=== PATIENT | female | born 1980 | race Two or more races ===

== ENCOUNTER 2018-05-17 08:26 | Emergency (ER) | payer MEDICAID ==
[~2018-05-17] VITALS: Ht 160 cm; Wt 100.0 kg
[~2018-05-17 08:26] MED LIST: DIPH25CA83 PO; FLO0.4C PO; HYDR-4383 PO; IBUP-1573 PO; IBUP-1986 PO; NAPR-1154 PO; ONDA4TAB12 PO; ONDA8TAB9 PO; TRAM50TA2 PO
[2018-05-17 09:28] LABS: URINE HCG NEGATIVE (NEG)
[2018-05-17 09:30] LABS: CLARITY,URINE SLIGHTLY CLOUDY (Clear); COLOR,URINE YELLOW (Yellow); GLUCOSE, URINE NEGATIVE (Neg); KETONES,URINE NEGATIVE (Neg); LEUKOCYTE ESTERASE ,URINE NEGATIVE (Neg); NITRITES, URINE NEGATIVE (Neg); OCCULT BLOOD,URINE TRACE-INTACT (Neg); PH,URINE 5.5 (4.8-8.0); PROTEIN,URINE TRACE mg/dl (Neg); UROBILINOGEN,URINE 0.2 E.U/dL (0.2-1.0)
[2018-05-17] MEDS ORDERED: ondansetron 4mg rapidly disintigrating tab PO ONE (09:30)
[2018-05-17] MEDS ORDERED: ketorolac trometh inj. 60 MG/2 ML VIAL IM ONE (09:30)
[2018-05-17 09:36] LABS: UA COLLECTION TYPE VOIDED
[2018-05-17 09:39] LABS: SQUAMOUS EPITHELIAL CELL,UR MANY /LPF (FEW)
[2018-05-17 09:40] LABS: MUCUS STRANDS MODERATE /LPF (Neg)
[2018-05-17 09:42] LABS: AMORPHOUS URATES 1+; BACTERIA,URINE FEW /HPF (Neg); RBC,URINE 0-2 /HPF (0-2); WBC,URINE 0-4 /HPF (0-4)
[2018-05-17 09:57] VITALS: BP 126/78
[2018-05-17] MEDS ORDERED: IBUP-1984 PO (10:00)
[2018-05-17] MEDS ORDERED: HYDR-4353 PO (10:00)
[2018-05-17] MEDS ORDERED: FLO0.4C PO (10:00)
== END 2018-05-17 10:09 | disposition home or self-care (01) ==
LOC: ER 08:27
DX: R10.9 Unspecified abdominal pain (principal); R11.10 Vomiting, unspecified; J45.909 Unspecified asthma, uncomplicated; Z87.442 Personal history of urinary calculi; Z86.14 Personal history of Methicillin resistant Staphylococcus aureus infection; Z90.49 Acquired absence of other specified parts of digestive tract; Z98.890 Other specified postprocedural states; Z88.2 Allergy status to sulfonamides; Z88.1 Allergy status to other antibiotic agents; Z79.899 Other long term (current) drug therapy
CPT/HCPCS: 81001; 81025; 96372; 99283; J1885

== ENCOUNTER 2018-06-18 15:02 | Emergency (ER) | payer MEDICAID ==
[~2018-06-18] VITALS: Ht 162.6 cm; Wt 105.0 kg
[2018-06-18 15:03] VITALS: BP 170/94
[2018-06-18] MEDS ORDERED: ketorolac trometh. 30mg/ml inj. IV ONE (15:55)
[2018-06-18] MEDS ORDERED: ondansetron/PF 4mg/2ml inj IV ONE (15:55)
[2018-06-18] MEDS ORDERED: morphine 4 MG/ML inj SYRINge IV PRN (15:55)
[2018-06-18] MEDS ORDERED: normal saline 1000ML IV soln IVB ONE (15:55)
[2018-06-18 16:12] LABS: URINE HCG NEGATIVE (NEG)
[2018-06-18 16:13] LABS: CLARITY,URINE CLOUDY (Clear); COLOR,URINE YELLOW (Yellow); GLUCOSE, URINE NEGATIVE (Neg); KETONES,URINE NEGATIVE (Neg); LEUKOCYTE ESTERASE ,URINE NEGATIVE (Neg); NITRITES, URINE NEGATIVE (Neg); OCCULT BLOOD,URINE TRACE-LYSED (Neg); PH,URINE 5.5 (4.8-8.0); PROTEIN,URINE TRACE mg/dl (Neg); UROBILINOGEN,URINE 0.2 E.U/dL (0.2-1.0)
[2018-06-18 16:14] LABS: UA COLLECTION TYPE CLN CATCH MIDSTREAM
[2018-06-18 16:18] LABS: SQUAMOUS EPITHELIAL CELL,UR MANY /LPF (FEW)
[2018-06-18 16:19] LABS: BACTERIA,URINE 1+ /HPF (Neg); RBC,URINE 0-2 /HPF (0-2); WBC,URINE 0-4 /HPF (0-4)
[2018-06-18 16:41] LABS: BASOPHILS % (AUTO) 0.4 % (0-1); EOSINOPHILS # (AUTO) 0.2 X10'3 (0-0.9); EOSINOPHILS % (AUTO) 2.1 % (0-6); HEMATOCRIT 39.8 % (35.0-45.0); HEMOGLOBIN 13.5 g/dl (12.0-16.0); LYMPHOCYTES # (AUTO) 2.5 X10'3 (1.1-4.8); LYMPHOCYTES % (AUTO) 26.8 % (21-51); MEAN CORPUSCULAR HGB CONC 33.9 % (33.0-36.5); MEAN CORPUSCULAR VOLUME 91.4 FL (78-98); MEAN PLATELET VOLUME 7.3 FL (7.4-10.4); MONOCYTES # (AUTO) 0.7 X10'3 (0-0.9); MONOCYTES % (AUTO) 7.2 % (2-12); NEUTROPHILS % (AUTO) 63.5 % (42-75); PLATELET COUNT 376 X10'3 (140-440); RED BLOOD COUNT 4.35 X10'6 (4.20-5.60); RED CELL DISTRIBUTION WIDTH 14.9 % (11.5-14.5); WHITE BLOOD COUNT 9.4 X10'3 (4.5-11.0)
[2018-06-18 16:52] LABS: ALANINE AMINOTRANSFERASE 27 U/L (12-78); ALBUMIN 3.9 G/DL (3.4-5.0); ALBUMIN/GLOBULIN RATIO 1.1 (1.1-1.5); ALKALINE PHOSPHATASE 71 IU/L (46-116); ANION GAP 9 (8-16); ASPARTATE AMINO TRANSFERASE 24 U/L (10-37); BILIRUBIN,TOTAL 0.9 MG/DL (0.1-1.0); BLOOD UREA NITROGEN 11 MG/DL (7-18); BUN/CREATININE RATIO 16.4 (6.6-38.0); CALCIUM 9.1 MG/DL (8.5-10.1); CHLORIDE 104 MMOL/L (99-107); CREATININE 0.67 MG/DL (0.40-0.90); GLUCOSE 79 MG/DL (70-104); POTASSIUM 3.9 MMOL/L (3.5-5.1); SODIUM 139 MMOL/L (135-145); TOTAL CARBON DIOXIDE 26.3 MMOL/L (24-32); TOTAL PROTEIN 7.6 G/DL (6.4-8.2); eGFR > 90 ML/MIN
[2018-06-18] MEDS ORDERED: KETO10TA2 PO (17:34)
== END 2018-06-18 18:16 | disposition home or self-care (01) ==
LOC: ER 15:02
DX: N23 Unspecified renal colic (principal); J45.909 Unspecified asthma, uncomplicated; Z90.49 Acquired absence of other specified parts of digestive tract; Z88.1 Allergy status to other antibiotic agents; Z88.2 Allergy status to sulfonamides
CPT/HCPCS: 36415; 74176; 76775; 80053; 81001; 81025; 85025; 96374; 96375; 99284; J1885; J2270; J2405; 96361; J7030

== ENCOUNTER → 2018-07-30 | Emergency (ER) | payer MEDICAID ==
[~2018-07-30] VITALS: Ht 162.6 cm; Wt 106.0 kg
[~2018-07-30] MED LIST changes: +KETO10TA2 PO; +LORazepam 2 mg/ml vial IM ONE; +ONDA8TAB6 PO; +diazepam 5mg tablet PO ONE; +ondansetron 4mg rapidly disintigrating tab PO ONE; +proCHLORperazine 10mg tablet PO ONE
[2018-07-30 15:26] VITALS: BP 161/123
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
[2018-07-30 16:22] LABS: CLARITY,URINE CLOUDY (Clear); COLOR,URINE YELLOW (Yellow); GLUCOSE, URINE NEGATIVE (Neg); KETONES,URINE TRACE mg/dl (Neg); LEUKOCYTE ESTERASE ,URINE NEGATIVE (Neg); NITRITES, URINE NEGATIVE (Neg); OCCULT BLOOD,URINE SMALL (Neg); PH,URINE 5.5 (4.8-8.0); PROTEIN,URINE 30 mg/dl (Neg); UROBILINOGEN,URINE 0.2 E.U/dL (0.2-1.0)
[2018-07-30 16:26] LABS: URINE HCG NEGATIVE (NEG)
[2018-07-30 16:32] LABS: UA COLLECTION TYPE CLN CATCH MIDSTREAM
[2018-07-30 16:44] LABS: WBC,URINE 0-4 /HPF (0-4)
[2018-07-30 16:45] LABS: BACTERIA,URINE FEW /HPF (Neg); HYALINE CASTS 0-3 /LPF (NEGATIVE); MUCUS STRANDS MODERATE /LPF (Neg); RBC,URINE 0-2 /HPF (0-2); SQUAMOUS EPITHELIAL CELL,UR MANY /LPF (FEW)
[2018-07-30 17:05] LABS: URINE AMPHETAMINE SCREEN POSITIVE (Neg); URINE BARBITUATE SCREEN NEGATIVE (Neg); URINE BENZODIAZEPINES SCREEN NEGATIVE (Neg); URINE CANNABINOID SCREEN POSITIVE (Neg); URINE COCAINE SCREEN NEGATIVE (Neg); URINE METHADONE SCREEN NEGATIVE (Neg); URINE OPIATE SCREEN POSITIVE (Neg); URINE PHENCYCLIDINE SCREEN NEGATIVE (Neg)
== END | disposition home or self-care (01) ==
LOC: ER 15:17
DX: R11.10 Vomiting, unspecified (principal); J45.909 Unspecified asthma, uncomplicated; Z87.442 Personal history of urinary calculi; Z90.49 Acquired absence of other specified parts of digestive tract; Z98.890 Other specified postprocedural states; Z98.51 Tubal ligation status; Z88.1 Allergy status to other antibiotic agents; Z88.8 Allergy status to other drugs, medicaments and biological substances; Z79.899 Other long term (current) drug therapy
CPT/HCPCS: 80305; 81001; 81025; 93005; 96372; 99284; J2060; Q0164

== ENCOUNTER 2018-10-07 13:22 | Emergency (ER) | payer MEDICAID ==
[~2018-10-07] VITALS: Ht 162.6 cm; Wt 95.5 kg
[~2018-10-07 13:22] MED LIST changes: +IBUP-1985 PO; -LORazepam 2 mg/ml vial IM ONE; -diazepam 5mg tablet PO ONE; -ondansetron 4mg rapidly disintigrating tab PO ONE; -proCHLORperazine 10mg tablet PO ONE
[2018-10-07 14:13] LABS: BASOPHILS % (AUTO) 0.1 % (0-1); EOSINOPHILS # (AUTO) 0.1 X10'3 (0-0.9); EOSINOPHILS % (AUTO) 0.8 % (0-6); HEMATOCRIT 40.9 % (35.0-45.0); HEMOGLOBIN 14.3 g/dl (12.0-16.0); LYMPHOCYTES # (AUTO) 0.5 X10'3 (1.1-4.8); LYMPHOCYTES % (AUTO) 6.4 % (21-51); MEAN CORPUSCULAR HEMOGLOBIN 32.1 PG (27.0-31.0); MEAN CORPUSCULAR VOLUME 91.8 FL (78-98); MEAN PLATELET VOLUME 6.9 FL (7.4-10.4); MONOCYTES # (AUTO) 0.3 X10'3 (0-0.9); MONOCYTES % (AUTO) 3.3 % (2-12); NEUTROPHILS # (AUTO) 6.9 X10'3 (1.8-7.7); NEUTROPHILS % (AUTO) 89.4 % (42-75); PLATELET COUNT 293 X10'3 (140-440); RED BLOOD COUNT 4.46 X10'6 (4.20-5.60); RED CELL DISTRIBUTION WIDTH 14.3 % (11.5-14.5); WHITE BLOOD COUNT 7.7 X10'3 (4.5-11.0)
[2018-10-07 14:28] LABS: ALANINE AMINOTRANSFERASE 22 U/L (12-78); ALBUMIN 3.8 G/DL (3.4-5.0); ALBUMIN/GLOBULIN RATIO 1.1 (1.1-1.5); ALKALINE PHOSPHATASE 82 IU/L (46-116); ANION GAP 9 (8-16); ASPARTATE AMINO TRANSFERASE 13 U/L (10-37); BILIRUBIN,TOTAL 1.4 MG/DL (0.1-1.0); BLOOD UREA NITROGEN 11 MG/DL (7-18); BUN/CREATININE RATIO 14.1 (6.6-38.0); CHLORIDE 103 MMOL/L (99-107); CREATININE 0.78 MG/DL (0.40-0.90); GLUCOSE 100 MG/DL (70-104); POTASSIUM 3.6 MMOL/L (3.5-5.1); SODIUM 136 MMOL/L (135-145); TOTAL CARBON DIOXIDE 24.5 MMOL/L (24-32); TOTAL PROTEIN 7.2 G/DL (6.4-8.2); eGFR 82 ML/MIN
[2018-10-07 14:43] LABS: URINE HCG NEGATIVE (NEG)
[2018-10-07 14:53] LABS: CLARITY,URINE CLEAR (Clear); COLOR,URINE YELLOW (Yellow); GLUCOSE, URINE NEGATIVE (Neg); KETONES,URINE NEGATIVE (Neg); LEUKOCYTE ESTERASE ,URINE NEGATIVE (Neg); NITRITES, URINE NEGATIVE (Neg); OCCULT BLOOD,URINE TRACE-INTACT (Neg); PH,URINE 5.5 (4.8-8.0); PROTEIN,URINE NEGATIVE (Neg); UA COLLECTION TYPE CLN CATCH MIDSTREAM; UROBILINOGEN,URINE 0.2 E.U/dL (0.2-1.0)
[2018-10-07] MEDS ORDERED: normal saline 1000ML IV soln IVB ONE (14:55)
[2018-10-07] MEDS ORDERED: ketorolac tromethamine 15mg/ml inj. IV ONE (14:55)
[2018-10-07 15:06] LABS: SQUAMOUS EPITHELIAL CELL,UR MANY /LPF (FEW)
[2018-10-07 15:07] LABS: BACTERIA,URINE 1+ /HPF (Neg); RBC,URINE 0-2 /HPF (0-2); WBC,URINE 0-4 /HPF (0-4)
[2018-10-07] MEDS: ondansetron/PF 4mg/2ml inj IV ONE ×2 (15:25→15:35)
--- NOTE | 2018-10-07 15:30 | NUR ---
Spoke with loi in pharmacy regarding medication, zofran spilled out of vial and only was able to draw up approx. 1.25 mL of medication.
[2018-10-07] MEDS ORDERED: ondansetron/PF 4mg/2ml inj IV ONE (15:35)
[2018-10-07] MEDS ORDERED: ONDA4TAB12 PO (16:20)
[2018-10-07 16:31] VITALS: BP 116/57
== END 2018-10-07 16:32 | disposition home or self-care (01) ==
LOC: ER 13:23
DX: R10.9 Unspecified abdominal pain (principal); J45.909 Unspecified asthma, uncomplicated; F17.210 Nicotine dependence, cigarettes, uncomplicated; Z90.49 Acquired absence of other specified parts of digestive tract; Z98.890 Other specified postprocedural states; Z98.51 Tubal ligation status; Z87.442 Personal history of urinary calculi; Z88.1 Allergy status to other antibiotic agents; Z88.8 Allergy status to other drugs, medicaments and biological substances; Z79.899 Other long term (current) drug therapy
CPT/HCPCS: 36415; 80053; 81001; 81025; 85025; 96361; 96374; 96375; 99283; J1885; J2405; J7030

== ENCOUNTER 2018-12-08 14:16 | Emergency (ER) | payer MEDICAID ==
[~2018-12-08] VITALS: Ht 162.6 cm; Wt 112.0 kg
[2018-12-08 14:31] VITALS: BP 147/84
[2018-12-08] MEDS ORDERED: ALBU8HFA PO (14:59)
[2018-12-08] MEDS ORDERED: AZIT250T PO (14:59)
== END 2018-12-08 15:17 | disposition home or self-care (01) ==
LOC: ER 14:16
DX: J20.9 Acute bronchitis, unspecified (principal); J45.909 Unspecified asthma, uncomplicated; F32.9 Major depressive disorder, single episode, unspecified; F17.200 Nicotine dependence, unspecified, uncomplicated; Z87.442 Personal history of urinary calculi; Z86.2 Personal history of diseases of the blood and blood-forming organs and certain disorders involving the immune mechanism; Z86.14 Personal history of Methicillin resistant Staphylococcus aureus infection; Z90.49 Acquired absence of other specified parts of digestive tract; Z98.51 Tubal ligation status; Z98.890 Other specified postprocedural states; Z88.2 Allergy status to sulfonamides; Z88.8 Allergy status to other drugs, medicaments and biological substances; Z79.899 Other long term (current) drug therapy
CPT/HCPCS: 99283

== ENCOUNTER 2018-12-12 14:27 | Emergency (ER) | payer MEDICAID ==
[~2018-12-12] VITALS: Ht 162.6 cm; Wt 111.3 kg
[~2018-12-12 14:27] MED LIST changes: +ALBU8HFA PO; +AZIT250T PO
--- NOTE | 2018-12-12 15:03 | NUR ---
Patient states fell in the bathroom. Denies that floor was wet. States lost her balance and hit her right knee.
[2018-12-12 15:15] LABS: CLARITY,URINE SLIGHTLY CLOUDY (Clear); COLOR,URINE YELLOW (Yellow); GLUCOSE, URINE NEGATIVE (Neg); KETONES,URINE 15 mg/dl (Neg); LEUKOCYTE ESTERASE ,URINE NEGATIVE (Neg); NITRITES, URINE NEGATIVE (Neg); OCCULT BLOOD,URINE LARGE (Neg); PH,URINE 5.5 (4.8-8.0); PROTEIN,URINE 30 mg/dl (Neg); UROBILINOGEN,URINE 0.2 E.U/dL (0.2-1.0)
[2018-12-12 15:16] LABS: UA COLLECTION TYPE CLN CATCH MIDSTREAM
[2018-12-12] MEDS ORDERED: normal saline 1000ML IV soln IVB ONE (15:20)
[2018-12-12] MEDS ORDERED: ondansetron/PF 4mg/2ml inj IV ONE (15:20)
[2018-12-12 15:36] LABS: BACTERIA,URINE FEW /HPF (Neg); MUCUS STRANDS MODERATE /LPF (Neg); RBC,URINE 0-2 /HPF (0-2); SQUAMOUS EPITHELIAL CELL,UR MANY /LPF (FEW); WBC,URINE 0-4 /HPF (0-4)
[2018-12-12 15:44] LABS: BASOPHILS # (AUTO) 0.1 X10'3 (0-0.2); BASOPHILS % (AUTO) 0.5 % (0-1); EOSINOPHILS # (AUTO) 0.1 X10'3 (0-0.9); EOSINOPHILS % (AUTO) 0.6 % (0-6); HEMATOCRIT 42.4 % (35.0-45.0); HEMOGLOBIN 14.4 g/dl (12.0-16.0); LYMPHOCYTES # (AUTO) 1.8 X10'3 (1.1-4.8); LYMPHOCYTES % (AUTO) 16.3 % (21-51); MEAN CORPUSCULAR VOLUME 94.2 FL (78-98); MEAN PLATELET VOLUME 6.6 FL (7.4-10.4); MONOCYTES # (AUTO) 0.8 X10'3 (0-0.9); MONOCYTES % (AUTO) 7.3 % (2-12); NEUTROPHILS # (AUTO) 8.4 X10'3 (1.8-7.7); NEUTROPHILS % (AUTO) 75.3 % (42-75); PLATELET COUNT 320 X10'3 (140-440); RED CELL DISTRIBUTION WIDTH 14.7 % (11.5-14.5); WHITE BLOOD COUNT 11.2 X10'3 (4.5-11.0)
[2018-12-12 15:48] LABS: ALANINE AMINOTRANSFERASE 29 U/L (12-78); ALBUMIN 4.1 G/DL (3.4-5.0); ALBUMIN/GLOBULIN RATIO 1.1 (1.1-1.5); ALKALINE PHOSPHATASE 86 IU/L (46-116); ANION GAP 13 (8-16); ASPARTATE AMINO TRANSFERASE 25 U/L (10-37); BILIRUBIN,TOTAL 1.1 MG/DL (0.1-1.0); BLOOD UREA NITROGEN 9 MG/DL (7-18); BUN/CREATININE RATIO 10.8 (6.6-38.0); CALCIUM 9.2 MG/DL (8.5-10.1); CHLORIDE 104 MMOL/L (99-107); CREATININE 0.83 MG/DL (0.40-0.90); GLUCOSE 93 MG/DL (70-104); LIPASE 74 U/L (73-393); POTASSIUM 3.7 MMOL/L (3.5-5.1); SODIUM 139 MMOL/L (135-145); TOTAL CARBON DIOXIDE 22.3 MMOL/L (24-32); TOTAL PROTEIN 7.8 G/DL (6.4-8.2); eGFR 77 ML/MIN
[2018-12-12] MEDS ORDERED: ONDA4TAB6 PO (16:13)
[2018-12-12 16:25] VITALS: BP 143/86
== END 2018-12-12 16:27 | disposition home or self-care (01) ==
LOC: ER 14:27
DX: A08.4 Viral intestinal infection, unspecified (principal); E66.9 Obesity, unspecified; J45.909 Unspecified asthma, uncomplicated; Z87.442 Personal history of urinary calculi; Z90.49 Acquired absence of other specified parts of digestive tract; Z98.890 Other specified postprocedural states; Z98.51 Tubal ligation status; Z88.2 Allergy status to sulfonamides; Z88.8 Allergy status to other drugs, medicaments and biological substances; Z79.899 Other long term (current) drug therapy
CPT/HCPCS: 36415; 71045; 73564; 80053; 81001; 83690; 85025; 96374; 99284; J2405; J7030; 96361

== ENCOUNTER 2019-01-03 10:28 | Emergency (ER) | payer MEDICAID ==
[~2019-01-03] VITALS: Ht 162.6 cm; Wt 108.5 kg
[~2019-01-03 10:28] MED LIST changes: -AZIT250T PO; +ONDA4TAB6 PO
[2019-01-03 11:11] LABS: BASOPHILS # (AUTO) 0.2 X10'3 (0-0.2); EOSINOPHILS # (AUTO) 0.7 X10'3 (0-0.9); EOSINOPHILS % (AUTO) 6.1 % (0-6); HEMATOCRIT 42.7 % (35.0-45.0); LYMPHOCYTES # (AUTO) 1.6 X10'3 (1.1-4.8); LYMPHOCYTES % (AUTO) 14.5 % (21-51); MEAN CORPUSCULAR HEMOGLOBIN 32.5 PG (27.0-31.0); MEAN CORPUSCULAR HGB CONC 35.1 g/dL (33.0-36.5); MEAN CORPUSCULAR VOLUME 92.5 FL (78-98); MEAN PLATELET VOLUME 7.2 FL (7.4-10.4); MONOCYTES # (AUTO) 0.4 X10'3 (0-0.9); NEUTROPHILS # (AUTO) 7.9 X10'3 (1.8-7.7); NEUTROPHILS % (AUTO) 73.4 % (42-75); PLATELET COUNT 371 X10'3 (140-440); RED BLOOD COUNT 4.62 X10'6 (4.20-5.60); RED CELL DISTRIBUTION WIDTH 14.7 % (11.5-14.5); WHITE BLOOD COUNT 10.7 X10'3 (4.5-11.0)
[2019-01-03 11:31] LABS: ALANINE AMINOTRANSFERASE 27 U/L (12-78); ALBUMIN 3.9 G/DL (3.4-5.0); ALKALINE PHOSPHATASE 74 IU/L (46-116); ANION GAP 13 (8-16); ASPARTATE AMINO TRANSFERASE 18 U/L (10-37); BILIRUBIN,TOTAL 0.6 MG/DL (0.1-1.0); BLOOD UREA NITROGEN 7 MG/DL (7-18); BUN/CREATININE RATIO 9.3 (6.6-38.0); CALCIUM 8.9 MG/DL (8.5-10.1); CHLORIDE 107 MMOL/L (99-107); CREATININE 0.75 MG/DL (0.40-0.90); GLUCOSE 110 MG/DL (70-104); LIPASE 169 U/L (73-393); POTASSIUM 4.2 MMOL/L (3.5-5.1); SODIUM 140 MMOL/L (135-145); TOTAL CARBON DIOXIDE 20.5 MMOL/L (24-32); TOTAL PROTEIN 7.7 G/DL (6.4-8.2); eGFR 86 ML/MIN
[2019-01-03 11:46] LABS: URINE HCG NEGATIVE (NEG)
[2019-01-03 11:49] LABS: CLARITY,URINE SLIGHTLY CLOUDY (Clear); COLOR,URINE STRAW (Yellow); GLUCOSE, URINE NEGATIVE (Neg); KETONES,URINE NEGATIVE (Neg); LEUKOCYTE ESTERASE ,URINE NEGATIVE (Neg); NITRITES, URINE NEGATIVE (Neg); OCCULT BLOOD,URINE TRACE-INTACT (Neg); PROTEIN,URINE NEGATIVE (Neg); UROBILINOGEN,URINE 0.2 E.U/dL (0.2-1.0)
[2019-01-03 12:01] LABS: UA COLLECTION TYPE CLN CATCH MIDSTREAM
[2019-01-03 12:03] LABS: BACTERIA,URINE FEW /HPF (Neg); MUCUS STRANDS MANY /LPF (Neg); RBC,URINE 0-2 /HPF (0-2); SQUAMOUS EPITHELIAL CELL,UR MANY /LPF (FEW); WBC,URINE 0-4 /HPF (0-4)
[2019-01-03] MEDS ORDERED: tamsulosin 0.4mg capsule PO ONE (12:15)
[2019-01-03] MEDS ORDERED: ondansetron/PF 4mg/2ml inj IV ONE (12:15)
[2019-01-03] MEDS ORDERED: ketorolac tromethamine 15mg/ml inj. IV ONE (12:15)
[2019-01-03] MEDS ORDERED: normal saline 1000ML IV soln IVB ONE (12:15)
[2019-01-03] MEDS ORDERED: TRAM50TA2 PO (13:30)
[2019-01-03 13:40] VITALS: BP 138/77
== END 2019-01-03 13:45 | disposition home or self-care (01) ==
LOC: ER 10:28
DX: M25.551 Pain in right hip (principal); M79.651 Pain in right thigh; R11.2 Nausea with vomiting, unspecified; J45.909 Unspecified asthma, uncomplicated; F32.9 Major depressive disorder, single episode, unspecified; Z86.14 Personal history of Methicillin resistant Staphylococcus aureus infection; Z90.49 Acquired absence of other specified parts of digestive tract; Z98.51 Tubal ligation status; Z98.890 Other specified postprocedural states; Z88.2 Allergy status to sulfonamides; Z88.1 Allergy status to other antibiotic agents; Z79.899 Other long term (current) drug therapy
CPT/HCPCS: 36415; 74176; 80053; 81001; 81025; 83690; 85025; 96361; 96374; 96375; 99284; J1885; J2405; J7030

== ENCOUNTER 2019-01-10 14:50 | Emergency (ER) | payer MEDICAID ==
[~2019-01-10] VITALS: Ht 162.6 cm; Wt 110.0 kg
[~2019-01-10 14:50] MED LIST changes: -ALBU8HFA PO
[2019-01-10] MEDS ORDERED: LORazepam 2 mg/ml vial IM ONE (15:25)
[2019-01-10 15:33] LABS: BASOPHILS % (AUTO) 0.4 % (0-1); EOSINOPHILS # (AUTO) 0.1 X10'3 (0-0.9); EOSINOPHILS % (AUTO) 1.1 % (0-6); HEMATOCRIT 45.3 % (35.0-45.0); HEMOGLOBIN 15.6 g/dl (12.0-16.0); LYMPHOCYTES % (AUTO) 23.1 % (21-51); MEAN CORPUSCULAR HEMOGLOBIN 31.9 PG (27.0-31.0); MEAN CORPUSCULAR HGB CONC 34.3 g/dL (33.0-36.5); MEAN CORPUSCULAR VOLUME 92.9 FL (78-98); MEAN PLATELET VOLUME 7.2 FL (7.4-10.4); MONOCYTES # (AUTO) 0.7 X10'3 (0-0.9); MONOCYTES % (AUTO) 7.8 % (2-12); NEUTROPHILS # (AUTO) 5.9 X10'3 (1.8-7.7); NEUTROPHILS % (AUTO) 67.6 % (42-75); PLATELET COUNT 339 X10'3 (140-440); RED BLOOD COUNT 4.88 X10'6 (4.20-5.60); RED CELL DISTRIBUTION WIDTH 14.3 % (11.5-14.5); WHITE BLOOD COUNT 8.7 X10'3 (4.5-11.0)
[2019-01-10 15:47] LABS: PARTIAL THROMBOPLASTIN TIME 25 SECONDS (22-32)
[2019-01-10 15:51] LABS: ALANINE AMINOTRANSFERASE 30 U/L (12-78); ALBUMIN 4.5 G/DL (3.4-5.0); ALBUMIN/GLOBULIN RATIO 1.3 (1.1-1.5); ALKALINE PHOSPHATASE 84 IU/L (46-116); ANION GAP 12 (8-16); ASPARTATE AMINO TRANSFERASE 22 U/L (10-37); BLOOD UREA NITROGEN 5 MG/DL (7-18); BUN/CREATININE RATIO 6.5 (6.6-38.0); CALCIUM 9.1 MG/DL (8.5-10.1); CHLORIDE 104 MMOL/L (99-107); CREATININE 0.77 MG/DL (0.40-0.90); GLUCOSE 99 MG/DL (70-104); POTASSIUM 4.3 MMOL/L (3.5-5.1); SODIUM 141 MMOL/L (135-145); TOTAL CARBON DIOXIDE 25.1 MMOL/L (24-32); TOTAL PROTEIN 7.9 G/DL (6.4-8.2); eGFR 83 ML/MIN
[2019-01-10] MEDS ORDERED: carVEDilol 3.125mg tablet PO ONE (16:15)
[2019-01-10] MEDS ORDERED: CARV-49 PO (16:18)
[2019-01-10 16:31] VITALS: BP 160/79
== END 2019-01-10 16:47 | disposition home or self-care (01) ==
LOC: ER 14:51
DX: F41.9 Anxiety disorder, unspecified (principal); R07.89 Other chest pain; J45.909 Unspecified asthma, uncomplicated; F32.9 Major depressive disorder, single episode, unspecified; F17.200 Nicotine dependence, unspecified, uncomplicated; F10.99 Alcohol use, unspecified with unspecified alcohol-induced disorder; Z86.2 Personal history of diseases of the blood and blood-forming organs and certain disorders involving the immune mechanism; Z87.442 Personal history of urinary calculi; Z86.14 Personal history of Methicillin resistant Staphylococcus aureus infection; Z90.49 Acquired absence of other specified parts of digestive tract; Z98.890 Other specified postprocedural states; Z98.51 Tubal ligation status; Z88.2 Allergy status to sulfonamides; Z88.8 Allergy status to other drugs, medicaments and biological substances; Z79.899 Other long term (current) drug therapy; Y90.9 Presence of alcohol in blood, level not specified
CPT/HCPCS: 36415; 71045; 80053; 84484; 85025; 85610; 85730; 93005; 96372; 99284; J2060

== ENCOUNTER 2022-06-08 17:10 | Emergency (ER) | payer MEDICAID ==
[~2022-06-08] VITALS: Ht 157.5 cm; Wt 97.0 kg
[~2022-06-08 17:10] MED LIST changes: +CARV-49 PO
[2022-06-08 17:50] LABS: BASOPHILS % (AUTO) 0.2 % (0-1); EOSINOPHILS # (AUTO) 0.1 X10'3 (0-0.9); HEMATOCRIT 38.6 % (35.0-45.0); LYMPHOCYTES # (AUTO) 2.2 X10'3 (1.1-4.8); MEAN CORPUSCULAR HEMOGLOBIN 30.6 PG (27.0-31.0); MEAN CORPUSCULAR HGB CONC 33.6 g/dL (33.0-36.5); MEAN PLATELET VOLUME 6.7 FL (7.4-10.4); MONOCYTES # (AUTO) 0.6 X10'3 (0-0.9); MONOCYTES % (AUTO) 4.5 % (2-12); NEUTROPHILS # (AUTO) 10.9 X10'3 (1.8-7.7); NEUTROPHILS % (AUTO) 78.3 % (42-75); PLATELET COUNT 395 X10'3 (140-440); RED BLOOD COUNT 4.25 X10'6 (4.20-5.60); RED CELL DISTRIBUTION WIDTH 14.4 % (11.5-14.5); WHITE BLOOD COUNT 13.9 X10'3 (4.5-11.0)
[2022-06-08 17:52] LABS: CLARITY,URINE CLEAR (Clear); COLOR,URINE YELLOW (Yellow); GLUCOSE, URINE NEGATIVE (Neg); KETONES,URINE NEGATIVE (Neg); LEUKOCYTE ESTERASE ,URINE NEGATIVE (Neg); NITRITES, URINE NEGATIVE (Neg); OCCULT BLOOD,URINE NEGATIVE (Neg); PH,URINE 6.5 (4.8-8.0); PROTEIN,URINE NEGATIVE (Neg); UROBILINOGEN,URINE 0.2 E.U/dL (0.2-1.0)
[2022-06-08 17:54] LABS: URINE HCG NEGATIVE (NEG)
[2022-06-08 17:56] LABS: UA COLLECTION TYPE CLN CATCH MIDSTREAM
[2022-06-08 18:08] LABS: ALANINE AMINOTRANSFERASE 22 U/L (12-78); ALBUMIN 4.2 G/DL (3.4-5.0); ALBUMIN/GLOBULIN RATIO 1.2 (1.1-1.5); ALKALINE PHOSPHATASE 77 IU/L (46-116); ANION GAP 10 (8-16); ASPARTATE AMINO TRANSFERASE 17 U/L (10-37); BILIRUBIN,TOTAL 0.5 MG/DL (0.1-1.0); BLOOD UREA NITROGEN 12 MG/DL (7-18); BUN/CREATININE RATIO 14.5 (6.6-38.0); CALCIUM 9.1 MG/DL (8.5-10.1); CHLORIDE 105 MMOL/L (99-107); CREATININE 0.83 MG/DL (0.40-0.90); GLUCOSE 90 MG/DL (70-104); LIPASE 249 U/L (73-393); POTASSIUM 3.5 MMOL/L (3.5-5.1); SODIUM 138 MMOL/L (135-145); TOTAL CARBON DIOXIDE 22.7 MMOL/L (24-32); TOTAL PROTEIN 7.7 G/DL (6.4-8.2); eGFR 75 ML/MIN
[2022-06-08] MEDS ORDERED: normal saline 1000ML IV soln IVB ONE (19:20)
[2022-06-08] MEDS ORDERED: ondansetron/PF 4mg/2ml inj IV ONE (19:20)
[2022-06-08] MEDS ORDERED: acetaminophen 325mg tablet PO ONE (19:20)
[2022-06-08] MEDS ORDERED: iohexol 300mg/ml 100ml inj. ONE (19:23)
--- NOTE | 2022-06-08 19:35 | NUR ---
pt is at ct currently.
--- NOTE | 2022-06-08 19:45 | NUR ---
I agree with Juan Doll
[2022-06-08 19:51] VITALS: BP 180/97
[2022-06-08] MEDS ORDERED: ONDA4TAB12 PO (20:14)
== END 2022-06-09 00:48 | disposition home or self-care (01) ==
LOC: ER 17:11
DX: R10.30 Lower abdominal pain, unspecified (principal); R11.2 Nausea with vomiting, unspecified; J45.909 Unspecified asthma, uncomplicated; F41.9 Anxiety disorder, unspecified; F32.9 Major depressive disorder, single episode, unspecified; Z90.49 Acquired absence of other specified parts of digestive tract; Z98.51 Tubal ligation status; Z98.890 Other specified postprocedural states; Z87.442 Personal history of urinary calculi; Z72.89 Other problems related to lifestyle; Z79.899 Other long term (current) drug therapy; Z88.2 Allergy status to sulfonamides; Z88.8 Allergy status to other drugs, medicaments and biological substances
CPT/HCPCS: 36415; 74177; 80053; 81003; 81025; 83690; 85025; 96361; 96374; 99285; J2405; J3490; J7030; Q9967

== ENCOUNTER 2024-10-03 09:19 | Emergency (ER) | payer MEDICAID ==
[~2024-10-03] VITALS: Ht 154.9 cm; Wt 119.2 kg
[~2024-10-03 09:19] MED LIST changes: -FLO0.4C PO; +ONDA-243 PO; -ONDA4TAB12 PO; +TAMS-55 PO
[2024-10-03 09:55] LABS: BILIRUBIN,URINE NEGATIVE (Neg); CLARITY,URINE SLIGHTLY CLOUDY (Clear); COLOR,URINE YELLOW (Yellow); GLUCOSE, URINE NEGATIVE (Neg); KETONES,URINE TRACE mg/dl (Neg); LEUKOCYTE ESTERASE ,URINE NEGATIVE (Neg); NITRITES, URINE NEGATIVE (Neg); OCCULT BLOOD,URINE SMALL (Neg); PROTEIN,URINE TRACE mg/dl (Neg); UROBILINOGEN,URINE 0.2 E.U/dL (0.2-1.0)
[2024-10-03 09:56] LABS: URINE HCG NEGATIVE (NEG)
[2024-10-03 09:56] LABS: BASOPHILS % (AUTO) 0.4 % (0-1); EOSINOPHILS # (AUTO) 0.2 X10'3 (0-0.9); EOSINOPHILS % (AUTO) 2.4 % (0-6); HEMATOCRIT 39.6 % (35.0-45.0); HEMOGLOBIN 13.8 g/dl (12.0-16.0); LYMPHOCYTES % (AUTO) 28.3 % (21-51); MEAN CORPUSCULAR HEMOGLOBIN 30.3 PG (27.0-31.0); MEAN CORPUSCULAR HGB CONC 34.8 g/dL (33.0-36.5); MEAN CORPUSCULAR VOLUME 87.2 FL (78-98); MEAN PLATELET VOLUME 7.1 FL (7.4-10.4); MONOCYTES # (AUTO) 0.8 X10'3 (0-0.9); MONOCYTES % (AUTO) 10.7 % (2-12); NEUTROPHILS # (AUTO) 4.1 X10'3 (1.8-7.7); NEUTROPHILS % (AUTO) 58.2 % (42-75); PLATELET COUNT 332 X10'3 (140-440); RED BLOOD COUNT 4.54 X10'6 (4.20-5.60); RED CELL DISTRIBUTION WIDTH 15.7 % (11.5-14.5)
[2024-10-03 09:58] LABS: UA COLLECTION TYPE CLN CATCH MIDSTREAM
[2024-10-03 09:59] LABS: BACTERIA,URINE FEW /HPF (Neg); MUCUS STRANDS FEW /LPF (Neg); RBC,URINE 0-2 /HPF (0-2); SQUAMOUS EPITHELIAL CELL,UR MODERATE /LPF (FEW); WBC,URINE 0-4 /HPF (0-4)
[2024-10-03 10:13] LABS: ALANINE AMINOTRANSFERASE 27 U/L (12-78); ALBUMIN/GLOBULIN RATIO 1.1 (1.1-1.5); ALKALINE PHOSPHATASE 105 IU/L (46-116); ANION GAP 9 (8-16); ASPARTATE AMINO TRANSFERASE 23 U/L (10-37); BILIRUBIN,TOTAL 0.7 MG/DL (0.1-1.0); BLOOD UREA NITROGEN 10 MG/DL (7-18); BUN/CREATININE RATIO 13.3 (10.0-20.0); CALCIUM 8.5 MG/DL (8.5-10.1); CHLORIDE 104 MMOL/L (99-107); CREATININE 0.75 MG/DL (0.40-0.90); GLUCOSE 98 MG/DL (70-104); LIPASE 36 U/L (16-77); POTASSIUM 3.4 MMOL/L (3.5-5.1); SODIUM 139 MMOL/L (135-145); TOTAL CARBON DIOXIDE 25.6 MMOL/L (24-32); TOTAL PROTEIN 7.5 G/DL (6.4-8.2); eCRCL 71 ML/MIN; eGFR 84 ML/MIN
[2024-10-03] MEDS: ringers solution, lacted 1,000 ML IV ONE (11:14)
[2024-10-03] MEDS: diphenhydrAMINE 50 mg/ml inj IV ONE (11:15)
[2024-10-03] MEDS: metoclopramide 5 mg/ml inj IV ONE (11:15)
[2024-10-03 11:20] VITALS: TEMP 98.1
--- NOTE | 2024-10-03 12:00 | Physician Documentation ---
History of Present Illness ~ Chief Complaint: Abdominal Pain w/vomiting Stated Complaint: VOMITING/DIARRHEA Time Seen by MD: 09:44 OK to notify your PCP?: Yes Primary Medical Doctor: none Mode of Arrival: POV, Dropped Off HPI 43-year-old female patient in the emergency room because of vomiting and diarrhea for four days. She puked up all the food and then now vomiting bile. Diarrhea is watery. She has no history of diabetes. She has two C section and one gallbladder removal. She smokes tobacco and she has stopped weed smoking 10 days ago. The patient has history of taking Zoloft and Wellbutrin. Also history of FEI and using CPAP. Fever no chills no other complaints. Medication Reconciliation Allergies: Coded Allergies: sulfamethoxazole (Verified Allergy, Unknown, 02/11/16) trimethoprim (Verified Allergy, Unknown, 02/11/16) Scheduled Carvedilol (Coreg), 1 TAB PO BID Ibuprofen (Ibuprofen), 600 MG PO Q6H Ibuprofen (Ibuprofen), 1 TABLET PO TID Ibuprofen (Ibuprofen), 1 TAB PO Q8H Ketorolac Tromethamine (Ketorolac Tromethamine), 1 TAB PO Q8H Metoclopramide HCl (Reglan), 1 TAB PO Q8H Naproxen (Naprosyn), 1 TABLET PO BID Ondansetron Hcl (Zofran), 1 TAB PO Q8H Ondansetron Hcl (Zofran), 1 TAB PO Q6H Tamsulosin Hcl* (Flomax*), 1 CAP PO DAILY Tramadol Hcl (Tramadol Hcl), 50-100 MG PO Q6H PRN FOR PAIN Scheduled PRN Diphenhydramine Hcl (Benadryl), 1-2 CAP PO Q6H PRN PRN for itching Hydrocodone/Acetaminophen ([place] 5-325 Tablet), 1 TAB PO TID PRN PRN for pain Lorazepam (Ativan), 1 TAB PO Q12H PRN PRN for anxiety ONDANSETRON ODT 4mg tablet (Ondansetron Odt), 1 TABLET PO Q6H PRN for nausea/vomiting ONDANSETRON ODT 4mg tablet (Ondansetron Odt), 1 TABLET PO Q6H PRN for nausea/vomiting ONDANSETRON ODT 4mg tablet (Ondansetron Odt), 1 TABLET PO Q6H PRN for nausea/vomiting Ondansetron (Zofran Odt), 8 MG PO TID PRN PRN for nausea/vomiting Past Medical History Past Medical History: Asthma, Anemia, Kidney Stones, MRSA Abscess, Anxiety, Depression Past Surgical History: cholecystectomy, , tubal ligation Other Past Family History: NONE Alcohol Use: Occasionally Drug Use: none Lives with: Family Lives In: Home Review of Systems ROS As stated above in the HPI, otherwise all systems are reviewed and negative. Physical Exam Vital Signs: Temperature: 98.1, Source: Oral, Heart Rate: 78, Respiratory Rate: 15, BP: 113/67, Pulse Oximetry: 99, Weight: 119.200 Oxygen Flow Rate: 0 Physical Exam Reviewed vital signs and they are well within normal range. Const: Not in acute cardiopulmonary distress Head: Atraumatic Eyes: Normal Conjunctiva ENT: Normal External Ears, Nose and Mouth. Moist mucous membranes Neck: Full range of motion. No meningismus Resp: Clear to auscultation bilaterally. Normal work of breathing Cardio: Regular rate and rhythm, no murmurs. Skin well perfused Abd: Soft, non-tender, non-distended. Normal bowel sounds. No rebound or guarding Abdominal examination is unremarkable and there is no signs of peritoneal irritation . Skin: No petechiae or rashes. Warm and dry Back: No midline or flank tenderness Ext: No cyanosis, or edema Neuro: Awake and alert Psych: Normal Mood and Affect Progress Results/Orders Results/Orders Completed Orders - COURTNEY ORELLANA MD Hcg, Ur Ql (10/03/24 09:30) Cbc/Diff (10/03/24 09:30) BMP (10/03/24 09:30) Lipase (10/03/24 09:30) CMP (10/03/24 09:30) Ua W/Microscopic, Cult If Ind (10/03/24 09:38) Ringers Solution, Lacted (Lactated Ringe (10/03/24 11:05) Metoclopramide Inj (Reglan Inj) (10/03/24 11:05) Diphenhydramine Inj (Benadryl Inj.) (10/03/24 11:05) Medications Received in ER Medications (Trade) Dose Ordered Sig/Miriam Route PRN Reason Start Time Stop Time Status Last Admin Dose Admin Lactated Ringer's 1,000 ml @ 2,000 mls/hr ONCE ONCE IV 10/03/24 11:05 10/03/24 11:34 DC 10/03/24 11:14 2,000 MLS/HR (Reglan inj) 15 mg ONCE ONCE IV 10/03/24 11:05 10/03/24 11:06 DC 10/03/24 11:15 15 MG (Benadryl inj.) 50 mg ONCE ONCE IV 10/03/24 11:05 10/03/24 11:06 DC 10/03/24 11:15 50 MG Vital Signs 10/03/24 10/03/24 10/03/24 10/03/24 09:25 10:13 10:40 11:20 Temp 98.1 98.1 98.1 Pulse 82 74 78 Resp 16 18 15 15 B/P (MAP) 180/100 123/101 (108) 113/67 (82) Pulse Ox 98 98 99 O2 Flow Rate 0 0 0 10/03/24 12:23 Pulse 78 Resp 14 B/P (MAP) 127/80 (96) Pulse Ox 99 O2 Flow Rate 0 Laboratory Tests Test 10/03/24 09:38 10/03/24 09:46 Urine Specimen Description Cln catch midstream Urine Color Yellow Urine Clarity Slightly cloudy Urine pH 6.0 Urine Specific [place] 1.025 Urine Protein Trace Urine Glucose (UA) Negative Urine Ketones Trace H Urine Occult Blood Small Urine Nitrite Negative Urine Bilirubin Negative Urine Urobilinogen 0.2 Urine Leukocyte Esterase Negative Urine RBC 0-2 Urine WBC 0-4 Urine Squamous Epithelial Cells Moderate Urine Bacteria Few Urine Mucus Few Urine Culture Indicated Not ind Volume Urine Centrifuged 6 ml Urine HCG, Qualitative Negative Urine Comment Low volume White Blood Count 7.0 Red Blood Count 4.54 Hemoglobin 13.8 Hematocrit 39.6 Mean Corpuscular Volume 87.2 Mean Corpuscular Hemoglobin 30.3 Mean Corpuscular Hemoglobin Concent 34.8 Red Cell Distribution Width 15.7 H Platelet Count 332 Mean Platelet Volume 7.1 L Neutrophils (%) (Auto) 58.2 Lymphocytes (%) (Auto) 28.3 Monocytes (%) (Auto) 10.7 Eosinophils (%) (Auto) 2.4 Basophils (%) (Auto) 0.4 Neutrophils # (Auto) 4.1 Lymphocytes # (Auto) 2.0 Monocytes # (Auto) 0.8 Eosinophils # (Auto) 0.2 Basophils # (Auto) 0.0 CBC Comment Sodium Level 139 Potassium Level 3.4 L Chloride Level 104 Carbon Dioxide Level 25.6 Anion Gap 9 Blood Urea Nitrogen 10 Creatinine 0.75 Estimated GFR/1.73 m2 84 BUN/Creatinine Ratio 13.3 Glucose Level 98 Calcium Level 8.5 Total Bilirubin 0.7 Aspartate Amino Transf (AST/SGOT) 23 Alanine Aminotransferase (ALT/SGPT) 27 Alkaline Phosphatase 105 Total Protein 7.5 Albumin 4.0 Globulin 3.5 Albumin/Globulin Ratio 1.1 Lipase 36 Chemistry Comments Medical Decision Making Findings During the physical examination, the findings suggestive of acute life- threatening condition such as JVD, tracheal deviation, acidotic breathing, noisy stridorous breath sounds, pulses paradoxus, muffled heart sounds, unequal breath sounds, abdominal rigidity and rebound tenderness, focal neurological deficits, cool clammy skin, severe hypotension, severe tachycardia or bradycardia are absent. Her CBC and CMP are essentially normal. UA shows specific gravity 1025 and is concentrated urine. No Evidence of UTI. Patient is hydrated and given medications andnot to smoke cannabis anymore. My impression is [id number] dehydration. Patient got improved and felt better. Discharged with aftercare instruction. DISCLAIMER Inadvertent spelling and grammatical errors,inadvertent historic sites registrar errors,syntax errors, grammatical errors, and spelling errors are likely due to EMR/dictation software use and do not reflect on the overall quality of patient care. Note that the electronic time recorded on this note does not necessarily reflect the actual time of the patient encounter. Departure Disposition: 01 HOME / SELF CARE / HOMELESS Impression: Primary Impression: Dehydration, mild Condition: Stable Discharge Instructions: Viral Gastroenteritis, Adult, [id number] Additional Instructions: Thank you so much for visiting [facility] Emergency room. Please ask your nurse or provider if you have questions about your care today and do not leave until all your questions have been answered. Please use any medications given as directed and follow-up with your doctor in the next 1-3 days. You may also use motrin and tylenol as needed for pain unless instructed ot herwise by your provider or nurse. Indications for more urgent follow-up have been discussed, but you may return to the Emergency Department at ANY time for any worrisome or worsening symptoms. It is good that use quit using cannabis. For all purposes , utilization of cannabis has teemed with numerous medical problems. Referrals: NO PRIMARY CARE PROVIDER (PCP) Prescriptions Lorazepam (Ativan) 0.5 Mg Tablet 1 TAB PO Q12H PRN PRN for anxiety, #6 TAB 0 Refills Prov: COURTNEY ORELLANA MD 10/03/24 Metoclopramide HCl (Reglan) 10 Mg Tablet 1 TAB PO Q8H, #30 TAB 0 Refills before food and bedtime Prov: COURTNEY ORELLANA MD 10/03/24 Signature Scribe Signature: x Attestation: x COURTNEY ORELLANA MD October 03, 2024 12:00
[2024-10-03] MEDS ORDERED: LORA-268 PO (12:07)
[2024-10-03] MEDS ORDERED: METO-292 PO (12:07)
[2024-10-03 12:49] VITALS: BP 109/84; PULSE 72; RESP 15; O2SAT 99
== END 2024-10-03 12:54 | disposition home or self-care (01) ==
LOC: ER 09:20
DX: E86.0 Dehydration (principal); F32.A Depression, unspecified; F41.9 Anxiety disorder, unspecified; J45.909 Unspecified asthma, uncomplicated; Z87.440 Personal history of urinary (tract) infections; Z87.891 Personal history of nicotine dependence; Z88.1 Allergy status to other antibiotic agents; Z88.2 Allergy status to sulfonamides; Z88.8 Allergy status to other drugs, medicaments and biological substances; Z90.49 Acquired absence of other specified parts of digestive tract; Z98.51 Tubal ligation status
CPT/HCPCS: 36415; 80053; 81001; 81025; 83690; 85025; 96361; 96374; 96375; 99285; J1200; J2765; J7120

== ENCOUNTER 2024-12-04 20:26 | Emergency (ER) | payer MEDICAID ==
[~2024-12-04] VITALS: Ht 162.6 cm; Wt 103.5 kg
[~2024-12-04 20:26] MED LIST changes: +LORA-268 PO; +METO-292 PO
[2024-12-04 20:54] LABS: MEAN PLATELET VOLUME 7.3 FL (7.4-10.4); RED CELL DISTRIBUTION WIDTH 15.1 % (11.5-14.5)
[2024-12-04 21:10] LABS: CREATININE 0.79 MG/DL (0.40-0.90); TOTAL CARBON DIOXIDE 25.0 MMOL/L (24-32); eCRCL 78 ML/MIN; eGFR 79 ML/MIN
[2024-12-04 22:21] LABS: URINE HCG NEGATIVE (NEG)
--- NOTE | 2024-12-04 23:47 | Physician Documentation ---
History of Present Illness ~ Chief Complaint: Vaginal Bleeding Stated Complaint: ABNORMAL MENSTRUAL BLEEDING Time Seen by MD: 23:47 Primary Medical Doctor: none HPI 43-year-old female who presents with abnormal vaginal bleeding and pelvic pain She tells me that she has been having normal menstrual cycles until about a month ago. Over the last 1 month she has had daily vaginal bleeding. She has been going through 1-2 pads a day. She has had some red blood as well as clots. Over the past 2 days she has developed pain in her lower abdomen. She states it is sharp and severe, and located in the lower abdomen on both sides, left worse than right. No radiation of the pain. Nothing makes it better. She reports some mild associated nausea and intermittent dizziness. She also reports having some subjective fevers and chills. She tells me it hurts when she urinates, but describes this as pain in her abdomen, and denies any burning with urination. She has a history of an ovarian cyst in the past. No other history of abnormal bleeding. She does not have a gallbladder. She took ibuprofen without relief. Medication Reconciliation Allergies: Coded Allergies: sulfamethoxazole (Verified Allergy, Unknown, 12/04/24) trimethoprim (Verified Allergy, Unknown, 12/04/24) Scheduled Carvedilol (Coreg), 1 TAB PO BID Ciprofloxacin (Cipro), 1 TAB PO Q12H Ibuprofen (Ibuprofen), 600 MG PO Q6H Ibuprofen (Ibuprofen), 1 TABLET PO TID Ibuprofen (Ibuprofen), 1 TAB PO Q8H Ketorolac Tromethamine (Ketorolac Tromethamine), 1 TAB PO Q8H Metoclopramide HCl (Reglan), 1 TAB PO Q8H Metronidazole* (Flagyl*), 1 TAB PO Q12H Naproxen (Naprosyn), 1 TABLET PO BID Ondansetron Hcl (Zofran), 1 TAB PO Q8H Ondansetron Hcl (Zofran), 1 TAB PO Q6H Tamsulosin Hcl* (Flomax*), 1 CAP PO DAILY Tramadol Hcl (Tramadol Hcl), 50-100 MG PO Q6H PRN FOR PAIN Scheduled PRN Diphenhydramine Hcl (Benadryl), 1-2 CAP PO Q6H PRN PRN for itching Hydrocodone/Acetaminophen ([place] 5-325 Tablet), 1 TAB PO TID PRN PRN for pain Lorazepam (Ativan), 1 TAB PO Q12H PRN PRN for anxiety ONDANSETRON ODT 4mg tablet (Ondansetron Odt), 1 TABLET PO Q6H PRN for nausea/vomiting ONDANSETRON ODT 4mg tablet (Ondansetron Odt), 1 TABLET PO Q6H PRN for nausea/vomiting ONDANSETRON ODT 4mg tablet (Ondansetron Odt), 1 TABLET PO Q6H PRN for nausea/vomiting Ondansetron (Zofran Odt), 8 MG PO TID PRN PRN for nausea/vomiting Past Medical History Past Medical History: Asthma, Anemia, Kidney Stones, MRSA Abscess, Anxiety, Depression Past Surgical History: cholecystectomy, , tubal ligation Other Past Family History: NONE Alcohol Use: Occasionally Drug Use: none Lives with: Family Lives In: Home Review of Systems Constitutional: Reports: chills, fever Gastrointestinal: Reports: abdominal pain, nausea; Denies: vomiting, diarrhea Female Genitalia: Reports: abnormal bleeding Physical Exam Vital Signs: Temperature: 96.8, Source: Temporal, Heart Rate: 98, Respiratory Rate: 15, BP: 150/88, Pulse Oximetry: 97, Weight: 103.500 Physical Exam General: This is a healthy-appearing young female sitting calmly in bed HEENT: Atraumatic, oropharynx is moist Heart: Mild tachycardic, appears regular Lungs: Clear breath sounds bilateral, normal work of breathing, normal oxygen saturation on room air Abdomen: Soft, nondistended, focal tenderness to palpation in the left lower quadrant, without peritoneal findings Extremities: Warm and well-perfused Neuro: Alert and oriented, no focal deficits Psychiatric: Appears uncomfortable but is cooperative with exam Progress Results/Orders Results/Orders Orders - ROBERT NGUYEN MD Ultrasound Pelvis W/Orwo Dplx (12/05/24 ) Ct Abdomen Pelvis (12/05/24 05:15) Completed Orders - ROBERT NGUYEN MD Hcg, Ur Ql (12/04/24 20:33) Cbc/Diff (12/04/24 20:33) CMP (12/04/24 20:33) Normal Saline 1000ml (Sodium Chloride 10 (12/05/24 00:05) Ondansetron Inj. (Zofran 4mg/2ml Vial) (12/05/24 00:05) Ketorolac Trometh 15mg/Ml Vial (Toradol (12/05/24 00:05) Morphine 4mg/Ml Inj. (Morphine Inj.) (12/05/24 00:05) Ultrasound Pelvis W/Orwo Dplx (12/05/24 ) Ua W/Microscopic, Cult If Ind (12/04/24 22:05) Morphine 4mg/Ml Inj. (Morphine Inj.) (12/05/24 02:40) Ketorolac Trometh 15mg/Ml Vial (Toradol (12/05/24 02:40) Ct Abdomen Pelvis (12/05/24 05:15) Iohexol 300mg/Ml 100ml Inj. (Omnipaque-3 (12/05/24 04:34) Ciprofloxacin Tablet (Cipro Tablet) (12/05/24 06:35) Metronidazole Tablet (Flagyl Tablet) (12/05/24 06:35) Medications Received in ER Medications (Trade) Dose Ordered Sig/Miriam Route PRN Reason Start Time Stop Time Status Last Admin Dose Admin Sodium Chloride 1,000 ml @ 1,000 mls/hr ONCE ONCE IV 12/05/24 00:05 12/05/24 01:04 DC 12/05/24 00:58 1,000 MLS/HR (Zofran 4mg/2ml vial) 4 mg ONCE ONCE IV 12/05/24 00:05 12/05/24 00:06 DC 12/05/24 00:59 4 MG (morphine inj.) 4 mg ONCE ONCE IV 12/05/24 02:40 12/05/24 02:41 DC 12/05/24 02:41 4 MG (Toradol injection) 15 mg ONCE ONCE IV 12/05/24 02:40 12/05/24 02:41 DC 12/05/24 03:01 15 MG (Cipro tablet) 500 mg ONCE ONCE PO 12/05/24 06:35 12/05/24 06:37 DC 12/05/24 06:49 500 MG (Flagyl tablet) 500 mg ONCE ONCE PO 12/05/24 06:35 12/05/24 06:37 DC 12/05/24 06:49 500 MG Vital Signs 12/04/24 12/04/24 12/05/24 12/05/24 20:52 23:15 00:30 02:41 Temp 96.8 Pulse 98 86 Resp 15 16 16 14 B/P (MAP) 150/88 148/93 (111) Pulse Ox 97 97 O2 Flow Rate 0 12/05/24 12/05/24 12/05/24 03:01 03:12 06:55 Temp 97.9 Pulse 86 74 Resp 12 14 16 B/P (MAP) 141/79 (99) 139/88 Pulse Ox 97 97 Laboratory Tests Test 12/04/24 20:45 12/04/24 22:05 White Blood Count 16.1 H Red Blood Count 4.17 L Hemoglobin 12.6 Hematocrit 37.0 Mean Corpuscular Volume 88.8 Mean Corpuscular Hemoglobin 30.3 Mean Corpuscular Hemoglobin Concent 34.1 Red Cell Distribution Width 15.1 H Platelet Count 324 Mean Platelet Volume 7.3 L Neutrophils (%) (Auto) 77.5 H Lymphocytes (%) (Auto) 16.1 L Monocytes (%) (Auto) 5.0 Eosinophils (%) (Auto) 1.0 Basophils (%) (Auto) 0.4 Neutrophils # (Auto) 12.5 H Lymphocytes # (Auto) 2.6 Monocytes # (Auto) 0.8 Eosinophils # (Auto) 0.2 Basophils # (Auto) 0.1 CBC Comment Sodium Level 136 Potassium Level 3.6 Chloride Level 103 Carbon Dioxide Level 25.0 Anion Gap 8 Blood Urea Nitrogen 7 Creatinine 0.79 Estimated GFR/1.73 m2 79 BUN/Creatinine Ratio 8.9 L Glucose Level 103 Calcium Level 8.8 Total Bilirubin 0.8 Aspartate Amino Transf (AST/SGOT) 8 L Alanine Aminotransferase (ALT/SGPT) 19 Alkaline Phosphatase 109 Total Protein 7.4 Albumin 3.5 Globulin 3.9 Albumin/Globulin Ratio 0.9 L Chemistry Comments Urine Specimen Description Cln catch midstream Urine Color Yellow Urine Clarity Clear Urine pH 7.0 Urine Specific [place] 1.010 Urine Protein Trace Urine Glucose (UA) Negative Urine Ketones Negative Urine Occult Blood Large H Urine Nitrite Negative Urine Bilirubin Small Urine Urobilinogen 1.0 Urine Leukocyte Esterase Negative Urine RBC 20-50 Urine WBC None seen Urine Squamous Epithelial Cells Few Urine Bacteria Few Urine Culture Indicated Not ind Volume Urine Centrifuged 10 ml Urine HCG, Qualitative Negative Urine Comment EKG/XRAY/CT/US/VASC/MRI CT : Impression I personally reviewed the CT scan, and this shows inflammatory changes in the left lower quadrant consistent with acute diverticulitis, no evidence of abscess, no pelvic mass Ultrasound : Impression Pelvic ultrasound shows normal ovaries, no evidence of torsion, no evidence of large cyst Medical Decision Making Additional Comment Differential includes abnormal uterine bleeding, , miscarriage, acute blood loss anemia, cancer, ovarian cysts, perimenopause, pelvic infection Assessment Here in the ED, the patient presents with abnormal vaginal bleeding and 2 days of lower abdominal pain. On exam she is quite tender, especially in the left lower quadrant. Labs show a mild leukocytosis, but no acute anemia. LFTs and kidney function are normal. She is not . She was given pain and nausea medications and IV fluids. Pelvic ultrasound is unremarkable. She continued to have significant pain, and so CT scan was then obtained. This shows findings consistent with acute diverticulitis. She will be treated with antibiotics for this. Regarding her abnormal uterine bleeding, the exact cause is unclear. Given that she is not anemic and her symptoms seem mild, we will defer further workup and treatment to the outpatient setting. Return precautions given if she does develop uncontrolled pain, uncontrolled bleeding, or uncontrolled vomiting or other concerning symptoms. Departure Time of Disposition: 06:32 Disposition: 01 HOME / SELF CARE / HOMELESS Impression: Primary Impression: Diverticulitis Additional Impression: Abnormal uterine bleeding Condition: Improved Discharge Instructions: Diverticulitis Referrals: NO PRIMARY CARE PROVIDER (PCP) Prescriptions Metronidazole* (Flagyl*) 500 Mg Tablet 1 TAB PO Q12H for 7 Days, #14 TAB Prov: ROBERT NGUYEN MD 12/05/24 Ciprofloxacin (Cipro) 250 Mg/5 Ml [facility]..rec 1 TAB PO Q12H for 7 Days, #14 TAB 0 Refills Prov: ROBERT NGUYEN MD 12/05/24 Education Educated: Patient Educated regarding: diagnosis, treatment, need for follow up Signature Scribe Signature: na Attestation: ROBERT Carvajal MD Dec 04, 2024 23:47
[2024-12-05] MEDS: morphine 4 MG/ML inj SYRINge IV ONE ×2 (00:05→02:41)
[2024-12-05] MEDS: ketorolac trometh 15mg/ml vial 15 MG/ML ML IV ONE ×2 (00:05→03:01)
[2024-12-05] MEDS: normal saline 1000ml 1,000 ML IV ONE (00:58)
[2024-12-05] MEDS: ondansetron/PF 4mg/2ml inj IV ONE (00:59)
[2024-12-05 01:25] LABS: LEUKOCYTE ESTERASE ,URINE NEGATIVE (Neg); NITRITES, URINE NEGATIVE (Neg); OCCULT BLOOD,URINE LARGE (Neg)
[2024-12-05 01:35] LABS: UA COLLECTION TYPE CLN CATCH MIDSTREAM
[2024-12-05 01:36] LABS: SQUAMOUS EPITHELIAL CELL,UR FEW /LPF (FEW)
--- NOTE | 2024-12-05 04:13 | RADIOLOGY REPORT ---
INDICATION: Pelvic pain, abnormal vaginal bleeding for 1 month TECHNIQUE: Multiple real-time grayscale transabdominal and TV sonographic images along with color and duplex Doppler of the uterus and ovaries were obtained. COMPARISON: None FINDINGS: The uterus measures 9 x 4 x 7 cm. The endometrial stripe measures 0.3cm. The right ovary measures 3 x 2 x 2 cm. The left ovary measures 3 x 2 x 1 cm. Subsequent color and duplex Doppler interrogation of the ovaries demonstrated symmetric vascular flow to both ovaries, though this does not exclude the possibility of torsion due to the dual blood suppl y. IMPRESSION: 1. Grossly unremarkable pelvic ultrasound.
[2024-12-05] MEDS ORDERED: iohexol 300mg/ml 100ml inj. ONE (04:34)
--- NOTE | 2024-12-05 06:08 | RADIOLOGY REPORT ---
EXAM: CT CT ABDOMEN PELVIS W/ IV CONTRAST HISTORY: Left lower quadrant pain, hematuria, vaginal bleeding COMPARISON: CT ABDOMEN PELVIS on DOS: 06/08/22 TECHNIQUE: Helical CT images of the abdomen and pelvis were performed with 100 mL Omnipaque 300 IV co ntrast. Sagittal and coronal reformatted images were obtained. This CT exam was performed using 1 or more of the following dose reduction techniques: Automated exposure control, adjustment of the mA and /or kv according to patient size, or the use of iterative reconstruction techniques. Radiation Dose Information: CT Dose: CTDI volume is 36.88 mGy. Dose-length product is 1813.26 mGy*cm FINDINGS: CT abdomen: The lung bases are clear. The heart is not enlarged. The liver measures 18.5 cm longitudi nal. The spleen measures 13 cm longitudinal. The pancreas, kidneys, and adrenal glands are unremark able. No abdominal aortic aneurysm or dissection. CT pelvis: No abnormal bowel dilatation or free air. There are descending colon diverticula. There is wall thickening with adjacent fat stranding involving the junction of the descending and sigmoid c olon, without evidence of pericolic abscess. The appendix and urinary bladder are unremarkable. There is bilateral L5 spondylolysis with grade 2 anterolisthesis L5 on S1 measuring 11 mm AP. There is adv anced lumbar degenerative disc disease with multilevel significant neural foraminal stenosis bilatera lly, most severe at L5-S1. IMPRESSION: 1. Acute diverticulitis at the junction of the descending and sigmoid colon, without evidence of charley colic abscess. 2. Mild hepatosplenomegaly. 3. Postoperative changes of cholecystectomy. 4. Lumbar degenerative disc disease with multilevel significant neural foraminal stenosis bilaterally . There is bilateral L5 spondylolysis with grade 2 anterolisthesis L5 on SThese findings would be bet ter characterized with outpatient noncontrast lumbar spine MRI. 5. No evidence of bowel obstruction, acute appendicitis, or other acute process in the abdomen or pel vis.
[2024-12-05] MEDS ORDERED: METR-159 PO (06:34)
[2024-12-05] MEDS ORDERED: CIPR250S2 PO (06:34)
[2024-12-05] MEDS: ciprofloxacin 250mg tablet PO ONE (06:49)
[2024-12-05 06:55] VITALS: BP 139/88; PULSE 74; RESP 16; TEMP 97.9; O2SAT 97
[2024-12-06] MEDS ORDERED: CIPR-259 PO (16:44)
== END 2024-12-05 06:59 | disposition home or self-care (01) ==
LOC: ER 20:26
DX: K57.32 Diverticulitis of large intestine without perforation or abscess without bleeding (principal); N93.9 Abnormal uterine and vaginal bleeding, unspecified; J45.909 Unspecified asthma, uncomplicated; D64.9 Anemia, unspecified; F41.9 Anxiety disorder, unspecified; F32.A Depression, unspecified; Z72.89 Other problems related to lifestyle; Z79.899 Other long term (current) drug therapy; Z88.2 Allergy status to sulfonamides; Z88.8 Allergy status to other drugs, medicaments and biological substances; Z90.49 Acquired absence of other specified parts of digestive tract; Z98.51 Tubal ligation status
CPT/HCPCS: 36415; 74177; 76856; 80053; 81001; 81025; 85025; 93976; 96361; 96374; 96375; 99285; J1885; J2270; J2405; J7030; Q9967

== ENCOUNTER 2025-04-04 14:05 | Emergency (ER) | payer MEDICAID ==
[~2025-04-04] VITALS: Ht 162.6 cm; Wt 117.0 kg
[~2025-04-04 14:05] MED LIST changes: +AZIT250T29 PO; +CIPR250S2 PO; -IBUP-1985 PO; +IBUP600T52 PO; +PRED10TA23 PO
[2025-04-04 14:12] VITALS: TEMP 98.3
--- NOTE | 2025-04-04 16:21 | Physician Documentation ---
History of Present Illness ~ Chief Complaint: Headache Stated Complaint: HYPOTENSION Time Seen by MD: 16:15 Primary Medical Doctor: none HPI 44-year-old female presents to the ED with a complaint of an ongoing headache and untreated hypertension. States that she does not take anything for blood pressure and does not know why her blood pressure is elevated. She denies any chest pain shortness of breath weakness or nausea vomiting Day of Onset: Apr 04, 2025 Medication Reconciliation Allergies: Coded Allergies: sulfamethoxazole (Verified Allergy, Unknown, 04/04/25) trimethoprim (Verified Allergy, Unknown, 04/04/25) Scheduled Azithromycin (Azithromycin), 1 TAB PO UD Carvedilol (Coreg), 1 TAB PO BID Ciprofloxacin (Cipro), 1 TAB PO Q12H Ibuprofen (Ibuprofen), 600 MG PO Q6H Ibuprofen (Ibuprofen), 1 TABLET PO TID Ibuprofen (Ibuprofen), 1 TAB PO Q8H Ketorolac Tromethamine (Ketorolac Tromethamine), 1 TAB PO Q8H Metoclopramide HCl (Reglan), 1 TAB PO Q8H Naproxen (Naprosyn), 1 TABLET PO BID Ondansetron Hcl (Zofran), 1 TAB PO Q8H Ondansetron Hcl (Zofran), 1 TAB PO Q6H Prednisone (Prednisone), 1 TAB PO BID Tamsulosin Hcl* (Flomax*), 1 CAP PO DAILY Tramadol Hcl (Tramadol Hcl), 50-100 MG PO Q6H PRN FOR PAIN Scheduled PRN Diphenhydramine Hcl (Benadryl), 1-2 CAP PO Q6H PRN PRN for itching Hydrocodone/Acetaminophen (P[place]her Burn 5-325 Tablet), 1 TAB PO TID PRN PRN for pain Lorazepam (Ativan), 1 TAB PO Q12H PRN PRN for anxiety ONDANSETRON ODT 4mg tablet (Ondansetron Odt), 1 TABLET PO Q6H PRN for nausea/vomiting ONDANSETRON ODT 4mg tablet (Ondansetron Odt), 1 TABLET PO Q6H PRN for nausea/vomiting ONDANSETRON ODT 4mg tablet (Ondansetron Odt), 1 TABLET PO Q6H PRN for nausea/vomiting Ondansetron (Zofran Odt), 8 MG PO TID PRN PRN for nausea/vomiting Past Medical History Past Medical History: Asthma, Anemia, Kidney Stones, MRSA Abscess, Anxiety, De pression Past Surgical History: cholecystectomy, , tubal ligation Other Past Family History: NONE Alcohol Use: Occasionally Drug Use: none Lives with: Family Lives In: Home Review of Systems All Other Systems at this time: Reviewed and Negative ROS As stated above in the HPI, otherwise all systems are reviewed and negative. Physical Exam Vital Signs: Temperature: 98.3, Source: Temporal, Heart Rate: 88, Respiratory Rate: 17, BP: 166/86, Pulse Oximetry: 96, Weight: 117.000 Oxygen Flow Rate: 0 Physical Exam General: Alert, no apparent distress. HEENT: PERRL, EOMI, no injection, moist mucous membranes. Neck: Full range of motion. Respiratory: Lungs clear, no respiratory distress. Chest: No accessory muscle use. Cardiovascular: Regular rate and rhythm, no murmurs. Gastrointestinal: Soft, nontender, nondistended. Bowels sounds present. Extremities: Normal range of motion, no deformity. Neurologic: Oriented x4. Psychiatric: Normal mood and affect. Skin: Normal color, warm and dry. No edema, no ecchymosis. Progress Results/Orders Results/Orders Completed Orders - NOEL KRAMER NP Ketorolac Trometh 30mg/Ml Vial (Toradol (04/04/25 16:20) Hydralazine Tablet (Apresoline 10mg Tabl (04/04/25 16:20) Medications Received in ER Medications (Trade) Dose Ordered Sig/Miriam Route PRN Reason Start Time Stop Time Status Last Admin Dose Admin (Toradol inj. 30mg/ml) 30 mg ONCE ONCE IM 04/04/25 16:20 04/04/25 16:21 DC 04/04/25 16:28 30 MG (Apresoline 10mg tablet) 10 mg NOW ONCE PO 04/04/25 16:20 04/04/25 16:21 DC 04/04/25 16:28 10 MG Vital Signs 04/04/25 04/04/25 04/04/25 04/04/25 14:12 16:15 16:28 17:12 Temp 98.3 Pulse 88 85 75 88 Resp 17 20 20 B/P (MAP) 166/86 172/90 (117) 169/98 (121) Pulse Ox 96 98 98 O2 Flow Rate 0 0 0 Medical Decision Making Additional information obtaine: old records Findings Patient was evaluated for migraine and or benign hypertension. Her hydralazine and saw modest improvement going to start her on lisinopril and have her follow up with outpatient setting. She does not present with any signs of an acute cardiac or stroke-like symptoms. Currently she meets criteria for safe discharge Differential Dx:Considerations: Include: ESPINOZA-Cluster, ESPINOZA-Migraine, ESPINOZA- Hypertensive, ESPINOZA-Muscular contraction, ESPINOZA-Post lumbar puncture, Carbon monoxide toxicity, Close head injuyr, CVA, Fever induced, Hemorrhage-Epidural, Hemorrhage-Intracerebral, Hemorrhage-Subarachnoid, Hemorrhage-Subdural, Mass lesion, Meningitis, Post-traumtic, Pseudotumor cerebri, Sinusitis, Temporal arteritis, Trigeminal neuralgia, Other Departure Disposition: 01 HOME / SELF CARE / HOMELESS Impression: Primary Impression: Headache Additional Impression: Benign hypertension Condition: Improved Discharge Instructions: Hypertension, Adult, [id number] Additional Instructions: It is important that she follow up with the primary care provider for evaluation of your hypertension. He had goes untreated it can lead to adverse events and . Going to start her on lisinopril today but it is important that she follow up with your primary care Referrals: NO PRIMARY CARE PROVIDER (PCP) Prescriptions Lisinopril (Lisinopril) 20 Mg Tablet 1 TAB PO DAILY for 30 Days, #30 TAB Prov: NOEL KRAMER NP 04/04/25 Signature Scribe Signature: v Attestation: Scribed for Noel Kramer Np by Noel Ferris NP . 04/04/25 17:24 NOEL KRAMER NP Apr 04, 2025 16:21
[2025-04-04] MEDS: ketorolac trometh 30MG/ML vial 30 MG/ML VIAL IM ONE (16:28)
[2025-04-04 17:12] VITALS: BP 169/98; PULSE 88; RESP 20; O2SAT 98
[2025-04-04] MEDS ORDERED: LISI20TA28 PO (17:23)
== END 2025-04-04 17:34 | disposition home or self-care (01) ==
LOC: ER 14:05
DX: I10 Essential (primary) hypertension (principal); J45.909 Unspecified asthma, uncomplicated; F41.9 Anxiety disorder, unspecified; F32.A Depression, unspecified; D64.9 Anemia, unspecified; Z88.2 Allergy status to sulfonamides; Z98.51 Tubal ligation status; Z90.49 Acquired absence of other specified parts of digestive tract; Z87.442 Personal history of urinary calculi; Z86.14 Personal history of Methicillin resistant Staphylococcus aureus infection; Z79.899 Other long term (current) drug therapy; Z72.89 Other problems related to lifestyle
CPT/HCPCS: 96372; 99283; J1885